=== PATIENT | male | born 1970 | race Caucasian/White ===

== ENCOUNTER 2017-12-04 01:12 | Emergency (ER) | payer OTHER ==
[2017-12-04 01:27] VITALS: BP 139/99
[2017-12-04] MEDS ORDERED: Tetan/Diph/Pertus SYR(Tdap)* 0.5 ML SYR(BOOSTRIX) use SYR IM ONE (02:20)
--- NOTE | 2017-12-04 05:39 | ED ---
Pearl Spence Emily, scribed for Berto Rodriguez MD on 12/04/17 at 0223 . Head Injury - HPI Summary HPI Summary: This patient is a 47 year old M presenting to [facility] accompanied by friends with a chief complaint of head injury that occurred [employer]. Patient reports patient falling from a loft while sleeping, about 4.5 feet. Pt denies loss of consciousness. The patient rates the pain 4/10 in severity. Symptoms aggravated by nothing. Symptoms alleviated by nothing. Patient denies headaches, neck pain , nausea, vomiting, and changes with vision. Pt reports recently having surgery to the left eye to remove a melanoma. - History Of Current Complaint Chief Complaint: EDHeadInjury Stated Complaint: HEAD LAC Time Seen by Provider: 12/04/17 02:13 Hx Obtained From: Patient Mechanism Of Injury: Fall From Height Of: - 4.5 Feet Onset/Duration: Started Hours Ago, Still Present Onset of Pain: Immediate Severity Currently: Moderate Severity Initially: Moderate Pain Intensity: 4 Pain Scale Used: 0-10 Numeric Location of Head Injury: Frontal Aggravating Factor(s): Other: - Nothing Alleviating Factor(s): Other: - Nothing Associated Signs And Symptoms: Other: - Negative headaches, neck pain, nausea, vomiting, and changes with vision - Allergies/Home Medications Allergies/Adverse Reactions: Allergies Allergy/AdvReac Type Severity Reaction Status Date / Time No Known Allergies Allergy Verified 12/04/17 01:24 PMH/Surg Hx/FS Hx/Imm Hx Previously Healthy: No Opthamlomology History: Denies: Hx Legally Blind EENT History: Denies: Hx Deafness - Cancer History Cancer Type, Location and Year: Melanoma Infectious Disease History: No Infectious Disease History: Denies: Traveled Outside the [place] in Last 30 Days - Family History Known Family History: Positive: Other - Noncontributory - Social History Occupation: Employed Full-time Lives: With Family Alcohol Use: None Substance Use Type: Reports: None Smoking Status (MU): Never Smoked Tobacco Review of Systems Eyes: Negative Negative: Vomiting, Nausea Positive: Other - Negative neck pain Negative: Headache All Other Systems Reviewed And Are Negative: Yes Physical Exam - Summary Physical Exam Summary: Appearance: Well appearing, no pain distress Skin: warm, dry, reflects adequate perfusion, 2.5 cm linear laceration just above the medial brow, bleeding is controlled. Head/face: normal Eyes: EOMI, Left pupil is dilated and unreactive. Some injection and sceleral edema on the L side. ENT: normal Neck: supple, non-tender Respiratory: CTA, breath sounds present Cardiovascular: RRR, pulses symmetrical Abdomen: non-tender, soft Bowel Sounds: present Musculoskeletal: normal, strength/ROM intact, No midline tenderness. No muscular tenderness with the neck. No change in ROM Neuro: normal, sensory motor intact, A&Ox3 Triage Information Reviewed: Yes Vital Signs On Initial Exam: Initial Vitals Temp Pulse Resp BP Pulse Ox 97.9 F 64 20 139/99 98 12/04/17 01:21 12/04/17 01:21 12/04/17 01:21 12/04/17 01:21 12/04/17 01:21 Vital Signs Reviewed: Yes Procedures - Laceration/Wound Repair 1 Location: head Description: Linear Anesthesia: Local, 1.0%, Lido Length, Depth and Shape: 2.5 cm length Laceration/Wound Explored: clean Suture Type: Prolene, Vicryl Number of Sutures: 12 - 3 underneath and 9 on the surface Diagnostics - Vital Signs Vital Signs Temp Pulse Resp BP Pulse Ox 12/04/17 01:21 97.9 F 64 20 139/99 98 - Laboratory Lab Statement: Any lab studies that have been ordered have been reviewed, and results considered in the medical decision making process. - CT Head CT CT Interpretation Completed By: Radiologist - Head CT reveals, per radiologist, scalp laceration without skull fracture or intracranial hemorrhage. Acute sinusitis. ED physician has reviewed this radiology report. Re-Evaluation - Re-Evaluation First Eval Re-Evaluation Time: 03:30 Change: Improved Comment: Discussed plan of care with pt Head Injury Course/Dx Course Of Treatment: big fall, nearly 5ft. CT neg. Tdap given. Lac repaired with layered closure after supraorbital nerve block on L. Good cosmetic result. GCS 15. - Diagnoses Differential Diagnosis/HQI/PQRI: Concussion Without LOC, Contusion, Intracranial Bleed, Laceration, Skull Fracture Provider Diagnoses: Closed head injury without concussion, Forehead laceration Discharge - Sign-Out/Discharge Documenting (check all that apply): Discharge - discharge home - Discharge Plan Condition: Good Disposition: HOME Patient Education Materials: Laceration (ED), Head Injury (ED) Referrals: No Primary Care Phys,NOPCP [Primary Care Provider] - Additional Instructions: See your doctor in [facility] in 5-7 days for suture removal. Return with concern for infection, severe headaches, worse or other concerns. Use a bacitracin ointment to the site 2-3 times daily. - Billing Disposition and Condition Condition: GOOD Disposition: HOME The documentation as recorded by the Pearl blas Emily accurately reflects the service I personally performed and the decisions made by me, Berto Rodriguez MD.
--- NOTE | 2017-12-04 07:58 | RAD ---
HISTORY: Left forearm fall, laceration COMPARISONS: None TECHNIQUE: Multiple contiguous axial CT scans were obtained of the head without intravenous contrast. FINDINGS: HEMORRHAGE/INFARCT: There is no hemorrhage or acute infarct. MASSES/SHIFT: There is no mass or shift. EXTRA-AXIAL SPACES: There are no extra-axial fluid collections. SULCI AND VENTRICLES: The sulci and ventricles are normal in size and position for the patient's stated age. CEREBRUM: There are no focal parenchymal abnormalities. BRAINSTEM: There are no focal parenchymal abnormalities. CEREBELLUM: There are no focal parenchymal abnormalities. VESSELS: The vessels are grossly normal. PARANASAL SINUSES: There is mucosal thickening of the right maxillary sinus, with an air-fluid level within the right maxillary sinus and right frontal sinus. ORBITS: The orbits are unremarkable. BONES AND SOFT TISSUE: No bone or soft tissue abnormalities are noted. OTHER: None IMPRESSION: NO ACUTE INTRACRANIAL PATHOLOGY. MILD SINUS MUCOSAL INFLAMMATORY DISEASE, WITH AIR-FLUID LEVELS IN THE RIGHT MAXILLARY AND RIGHT FRONTAL SINUSES. IN THE CORRECT CLINICAL SETTING, THIS MAY REPRESENT ACUTE SINUSITIS
== END 2017-12-04 03:58 | disposition home or self-care (01) ==
LOC: ED 01:12
DX: S01.81XA Laceration without foreign body of other part of head, initial encounter (principal); S09.90XA Unspecified injury of head, initial encounter; W17.89XA Other fall from one level to another, initial encounter; Y92.9 Unspecified place or not applicable
CPT/HCPCS: 70450; 90715; 99282

== ENCOUNTER 2017-12-09 09:16 | Emergency (ER) | payer OTHER ==
[2017-12-09 09:28] VITALS: BP 126/91
--- NOTE | 2017-12-09 09:30 | UC ---
HPI Wound/Suture Re-check - HPI Summary HPI Summary: This nice 47-year-old man is here at urgent care today to have sutures removed above his left eyebrow. 5 days ago he fell off a loft bed and sustained a laceration. It was repaired with a running stitch the laceration is well approximated and healed total length approximately 4 cm - History Of Current Complaint Chief Complaint: UCLaceration Stated Complaint: STITCH REMOVAL Time Seen by Provider: 12/09/17 09:29 Hx Obtained From: Patient Onset/Duration: Sudden Onset, Lasting Days - 5, Still Present Surgical Site: Above left eye brow Severity: Mild Pain Intensity: 0 Pain Scale Used: 0-10 Numeric - Allergies/Home Medications Allergies/Adverse Reactions: Allergies Allergy/AdvReac Type Severity Reaction Status Date / Time No Known Allergies Allergy Verified 12/09/17 09:22 Home Medications: Home Medications Escitalopram (NF) [Lexapro 20 mg (NF)] 20 mg PO DAILY 12/09/17 [History Confirmed 12/09/17] buPROPion TAB* [Wellbutrin TAB*] 150 mg PO DAILY 12/09/17 [History Confirmed 02/20] clonazePAM [Clonazepam] 2 tab PO DAILY 12/09/17 [History Confirmed 12/09/17] PMH/Surg Hx/FS Hx/Imm Hx Previously Healthy: No Psychological History: Anxiety - Surgical History Surgical History: Yes Surgery Procedure, Year, and Place: removal of melanoma to left eye - Family History Known Family History: Positive: Other - Noncontributory - Social History Occupation: Unemployed Lives: With Family Alcohol Use: None Substance Use Type: None Smoking Status (MU): Never Smoked Tobacco Review of Systems Constitutional: Negative Skin: Other - healing wound above left eye brow Eyes: Negative ENT: Negative Respiratory: Negative Cardiovascular: Negative Gastrointestinal: Negative Genitourinary: Negative Motor: Negative Neurovascular: Negative Musculoskeletal: Negative Neurological: Negative Psychological: Negative Is Patient Immunocompromised?: No All Other Systems Reviewed And Are Negative: Yes Physical Exam Triage Information Reviewed: Yes Appearance: Well-Appearing, No Pain Distress, Well-Nourished Vital Signs: Initial Vital Signs Temp 97.9 F 12/09/17 09:25 Pulse 75 12/09/17 09:25 Resp 18 12/09/17 09:25 BP 126/91 12/09/17 09:25 Pulse Ox 99 12/09/17 09:25 Vital Signs Reviewed: Yes Eye Exam: Normal Eyes: Positive: Conjunctiva Clear ENT Exam: Normal ENT: Positive: Normal ENT inspection, Hearing grossly normal. Negative: Nasal congestion, Trismus, Muffled voice, Hoarse voice Dental Exam: Normal Neck exam: Normal Neck: Positive: Supple, Nontender Respiratory Exam: Normal Respiratory: Positive: No respiratory distress, No accessory muscle use Cardiovascular Exam: Normal Cardiovascular: Positive: Pulses Normal, Brisk Capillary Refill Musculoskeletal Exam: Normal Musculoskeletal: Positive: Strength Intact, ROM Intact, No Edema Neurological Exam: Normal Neurological: Positive: Alert Psychological Exam: Normal Skin Exam: Other Skin: Positive: Other - Healing wound above left eyebrow, wound well approximated Re-Evaluation - Re-Evaluation First Eval Change: Improved - Patient tolerated suture removal valve wound remains well approximated Course/Dx - Course Course Of Treatment: Encourage patient to use a clean moisturizer on the wound as well as sunscreen when out side for the next 6 months to help decrease scarring. Patient will follow up with primary care provider as needed. Referrals made if patient still in the car or can follow with [facility] back in [place] - Differential Dx - Laceration/Wound Provider Diagnoses: Suture removal above left eyebrow Discharge - Sign-Out/Discharge Documenting (check all that apply): Discharge - Discharge Plan Condition: Stable Disposition: HOME Patient Education Materials: Stitches Removal (ED) Referrals: [facility] [Outside] - If Needed - Billing Disposition and Condition Condition: STABLE Disposition: HOME
== END 2017-12-09 09:40 | disposition home or self-care (01) ==
LOC: UCEAST 09:16
DX: S01.112D Laceration without foreign body of left eyelid and periocular area, subsequent encounter (principal); W06.XXXD Fall from bed, subsequent encounter; F41.9 Anxiety disorder, unspecified